=== PATIENT | female | born 1960 | race Caucasian/White ===

== ENCOUNTER → 2023-11-30 13:09 | Outpatient (REF) | payer BC, SELFPAY | LOC: WDC 13:09 | PROVIDERS: ATTENDING PHYSICIAN Family Medicine | DX: Z78.0 Asymptomatic menopausal state (principal); Z12.31 Encounter for screening mammogram for malignant neoplasm of breast | CPT/HCPCS: 77063; 77067; 77080 ==

== ENCOUNTER 2024-02-11 12:19 | Emergency (ER) | payer BC, SELFPAY ==
[2024-02-11 12:23] VITALS: BP 144/72
--- NOTE | 2024-02-11 12:25 | ED.GENMED ---
ED Provider Triage
<Larissa Rios, COMPENSATION INTERN - Last Filed: 02/11/24 13:48>
-
Patient seen by provider in Triage?: Seen in Triage
Attestation: A medical screening examination has been initiated by a qualified medical provider. Based on the assessment performed at this time, it has been determined that an emergent medical condition may exist and the patient has been informed
that further medical evaluation and possible additional diagnostic testing may be needed.
HPI: 63-year-old female presents with chest pain since last night, some shortness of breath, cough, arrives with temperature 100.2.
Flew back from [facility] 2 days ago.
GENERAL: Alert , in no apparent distress
EYE: No visual abnormalities.
ENT: No visible abnormalities.
LUNGS: No acute respiratory distress
NEUROLOGICAL: Alert and oriented
SKIN: Skin intact. No visible changes.
MUSCULOSKELETAL: Moving extremities normally
PSYCH: Normal and appropriate interaction.
This is a medical evaluation conducted in person to initiate diagnostic evaluation and provide initial therapeutics. Please see further documentation by the treating clinician.
History of Present Illness
<Larissa Rios, COMPENSATION INTERN - Last Filed: 02/11/24 13:48>
General
Chief Complaint: Chest Pain
Time Seen by Provider: 02/11/24 12:25
<Aster Robertson DO - Last Filed: 02/11/24 20:59>
History of Present Illness
History of Present Illness:
63-year-old female without significant past medical history presenting to the emergency department for fever, body aches, headache. Patient reports that she recently traveled to [facility], came home 2 days ago. Last evening started to have
headache, fever, left-sided chest pain, cough. Does note sick contact. Notes mild dyspnea. Reports diffuse body aching. She has been taking OTC medications at home. Denies any known cardiac or pulmonary history. Denies any history of blood
clots. Denies abdominal pain or GI symptoms. Denies additional acute medical complaints
Past History
<Larissa Rios, COMPENSATION INTERN - Last Filed: 02/11/24 13:48>
Past History
ED Past Medical History: Other (Fibromyalgia)
ED Past Surgical History: Gynecological
Social History
Tobacco: Non-smoker
Alcohol: Occasional
Drug: None
Personal:
Living: with family
Family History
Family History: Hypertension and CAD
Phy Exam
<Aster Robertson, DO - Last Filed: 02/11/24 20:59>
Physical Exam
Physical Exam:
General: Well-appearing, no clinical signs of dehydration, nontoxic and in no acute distress
HEENT: protecting airway
Neck: appears supple
CV: Normal heart rate, regular rhythm
Resp: No accessory muscle use, no increased work of breathing, lungs clear to auscultation bilaterally
Abd: Soft and non-distended, no tenderness to palpation
Extremities: No deformities, no swelling, no erythema
Neuro: alert, no focal neurologic deficit
: deferred
Rectal: deferred
Psych: Normal affect
Skin: Intact
Scores
<Aster Robertson, DO - Last Filed: 02/11/24 20:59>
Heart Score for Chest Pain Patients
STEMI patient?: No
History: Slightly or Non-Suspicious
ECG: Normal
Age: >45 - <65 years
Risk Factors: No Risk Factors
Troponin: </= Normal Limit
Heart Score for Chest Pain Patients: 1
Heart Score Risk: 2.5% MACE over next 6 weeks
Course
<Larissa Rios, COMPENSATION INTERN - Last Filed: 02/11/24 13:48>
Orders/Labs/Results
Orders:
Orders
02/11/24 12:20
Electrocardiogram (*1) Urgent
Reason for Study: Chest Pain
EKG- Treatment ONCE
02/11/24 12:28
CR Chest - 2 Views Urgent
Comment:
Reason For Exam: cough, fever
02/11/24 12:35
COVID-19 Antigen Urgent
Source: Nasal Swab
Complete Blood Count/With Diff Urgent
Comprehensive Metabolic Panel Urgent
Influenza A+B Rapid Molecular Urgent
MICHAEL Source: Nasal Swab
Specimen Description:
02/11/24 14:46
Acetaminophen [Tylenol] 1,000 mg PO NOW STA
Doxycycline [Vibramycin] 100 mg PO NOW STA
Abnormal Lab Results
02/11/24
12:35
MCH 32.5 H pg
(27.0-31.0)
Absolute Lymphs (auto) 0.6 L 10^3/uL
(1.2-3.4)
Lymphocytes % 12.0 L %
(20.5-51.1)
Monocytes % 12.0 H %
(1.7-9.3)
02/11/24 12:35
02/11/24 12:35
Vital Signs
Initial and Last Documented VS:
Initial Vital Signs
Temp Pulse Resp BP Pulse Ox
100.2 F 94 16 144/72 96
02/11/24 12:23 02/11/24 12:23 02/11/24 12:23 02/11/24 12:23 02/11/24 12:23
Last Documented Vital Signs
Temp Pulse Resp BP Pulse Ox
100.2 F 83 18 119/58 92
02/11/24 12:23 02/11/24 15:30 02/11/24 15:30 02/11/24 15:00 02/11/24 15:30
<Aster Robertson, DO - Last Filed: 02/11/24 20:59>
Orders/Labs/Results
Orders:
Orders
02/11/24 12:20
Electrocardiogram (*1) Urgent
Reason for Study: Chest Pain
EKG- Treatment ONCE
02/11/24 12:28
CR Chest - 2 Views Urgent
Comment:
Reason For Exam: cough, fever
02/11/24 12:35
COVID-19 Antigen Urgent
Source: Nasal Swab
Complete Blood Count/With Diff Urgent
Comprehensive Metabolic Panel Urgent
Influenza A+B Rapid Molecular Urgent
MICHAEL Source: Nasal Swab
Specimen Description:
02/11/24 14:46
Acetaminophen [Tylenol] 1,000 mg PO NOW STA
Doxycycline [Vibramycin] 100 mg PO NOW STA
Abnormal Lab Results
02/11/24
12:35
MCH 32.5 H pg
(27.0-31.0)
Absolute Lymphs (auto) 0.6 L 10^3/uL
(1.2-3.4)
Lymphocytes % 12.0 L %
(20.5-51.1)
Monocytes % 12.0 H %
(1.7-9.3)
02/11/24 12:35
02/11/24 12:35
Vital Signs
Initial and Last Documented VS:
Initial Vital Signs
Temp Pulse Resp BP Pulse Ox
100.2 F 94 16 144/72 96
02/11/24 12:23 02/11/24 12:23 02/11/24 12:23 02/11/24 12:23 02/11/24 12:23
Last Documented Vital Signs
Temp Pulse Resp BP Pulse Ox
100.2 F 83 18 119/58 92
02/11/24 12:23 02/11/24 15:30 02/11/24 15:30 02/11/24 15:00 02/11/24 15:30
<Aster Robertson, DO - Last Filed: 02/11/24 20:59>
MDM/Problems Addressed
MDM/Problems Addressed:
63-year-old female presenting to the emergency department for cough, fever, body aches, headache after traveling to [facility]. Vital signs on arrival significant for low-grade temperature.
Patient is well-appearing, nontoxic, no acute distress. Overall benign cardiac and pulmonary exam. Regarding patient's chest pain, EKG obtained ischemic interval change from prior EKG. Patient without significant cardiac risk factors or concern
for ACS. Suspected secondary to the cough and pulmonary irritation, likely viral syndrome versus bacterial pneumonia. Labs obtained prior to my assessment, normal, without leukocytosis. COVID and flu negative. Chest x-ray obtained prior to my
assessment, does show opacity consistent with pneumonia. Patient's fever, Tylenol administered. Will start patient on doxycycline. Patient ambulated, no acute desaturation. Feel candidate for discharge and outpatient supportive therapy and
antibiotic therapy. Patient agreeable to plan. Return precautions discussed with patient verbalized understanding
<Aster Robertson DO - Last Filed: 02/11/24 20:59>
*EKG
Interpreted by ED Provider?: Yes
EKG Intrepretation Date: 02/11/24
EKG Intrepretation Time: 14:56
Interpretation: normal
Comparison EKG: no changes (03/17/21)
Heart Rate: 90
Rate: normal
Rhythm: sinus
Grover: normal axis
Interval: normal interval
QRS Pattern: normal QRS
Ischemia: no ischemia
*Critical Care Note
Total Time (30-74mins, 75-104mins- exclusive of procedures): Not Applicable
ED Attending Note
<Larissa Rios COMPENSATION INTERN - Last Filed: 02/11/24 13:48>
-
Portions of this chart may have been created with voice recognition software.� Occasional wrong word or��sound alike� substitutions may have occurred due to the inherent limitations of voice recognition software.
Discharge Plan
Departure
Patient Disposition: Home (Routine Discharge)
Date of Disposition: 02/11/24
Time of Disposition: 15:22
Patient with high blood pressure during this ER visit?: No
Condition: Good
Discharge Problem:
Pneumonia
Instructions: Pneumonia in adults
Prescriptions:
New
doxycycline hyclate 100 mg capsule
100 mg PO BID 7 Days Qty: 14 0RF
No Action
sucralfate 1 GM/10 ML suspension
1 gm PO ACHS Qty: 60 0RF
pantoprazole 40 MG tablet,delayed release (DR/EC)
40 mg PO DAILY Qty: 20 0RF
Activity Restrictions/Additional Instructions:
You were seen in the emergency department for cough
You were found to have a pneumonia.
Please follow-up closely with your primary care physician.
Return to the emergency department for any worsening of your symptoms, or any development of chest pain, difficulty breathing, abdominal pain with persistent vomiting and inability to tolerate food or liquid by mouth (concern for dehydration),
weakness, headache or confusion, fever greater than 100.4, or any additional symptoms that are concerning to you.
Thank you for choosing [facility].
Interventions
Interventions:
*Risk Screen - Suicide Last Done: 02/11/24 12:25
*General Assessment Last Done: 02/11/24 14:18
*Neglect/Abuse Screening Last Done: 02/11/24 12:25
ED- Fall Risk Assessment Last Done: 02/11/24 14:25
*ED COVID-19 Vaccine History Last Done: 02/11/24 12:25
*Nursing Disposition Last Done: 02/11/24 15:35
ED- Cardiac Assessment Last Done: 02/11/24 14:24
Discharge Date and Time
Discharge Date/Time: 02/11/24 15:35
Print Language: MACEDONIAN
[2024-02-11 12:49] LABS: % Basophils 0.4 % (0-2); % Eosinophils 0.8 % (0-6); % Immature Granulocytes 0.2 % (0-0.5); % Neutrophils 74.6 % (42.2-75.2); Absolute Lymphocytes 0.6 10^3/uL (1.2-3.4); Absolute Monocytes 0.6 10^3/uL (0.1-0.6); Absolute Neutrophils 3.7 10^3/uL (1.4-6.5); Hematocrit 41.6 % (37.0-47.0); Hemoglobin 13.8 g/dL (12.0-16.0); Mean Corp Hgb Conc. 33.2 g/dL (33.0-37.0); Mean Corpuscular Hgb 32.5 pg (27.0-31.0); Mean Corpuscular Volume 97.9 fL (81.0-99.0); Mean Platelet Volume 9.6 fL (7.4-10.4); Nucleated Red Blood Cells % 0 %; Platelet Count 183 10^3/uL (130-400); Red Blood Cell Count 4.25 10^6/uL (4.20-5.40); Red Cell Dist. Width 13.7 % (11.5-14.5); White Blood Cell Count 4.9 10^3/uL (4.8-10.8)
[2024-02-11 13:01] LABS: ALT (SGPT) 15 U/L (0-35); AST (SGOT) 20 U/L (14-36); Albumin 4.1 g/dl (3.5-5.0); Alkaline Phosphatase 81 U/L (38-126); Blood Urea Nitrogen 11 mg/dl (7-17); Calcium 8.7 mg/dl (8.4-10.2); Carbon Dioxide 29 mmol/L (22-30); Chloride 103 mmol/L (98-107); Glucose 96 mg/dl (70-99); Potassium 3.9 mmol/L (3.5-5.1); Sodium 140 mmol/L (135-145); Total Bilirubin 0.6 mg/dl (0.2-1.3); Total Protein 6.7 g/dl (6.3-8.2); eGFR > 60.00
[2024-02-11 13:04] LABS: COVID-19 Antigen Negative (Negative)
[2024-02-11 14:17] VITALS: BMI 25.6
[2024-02-11 14:20] VITALS: BP 128/70
[2024-02-11] MEDS: TYLENOL 1000 MG PO (14:56)
[2024-02-11] MEDS: VIBRAMYCIN 100 MG PO (14:56)
[2024-02-11 15:00] VITALS: BP 119/58
== END 2024-02-11 15:35 | disposition home or self-care (01) ==
LOC: EMR 12:19
PROVIDERS: Registered Nurse; EMERGENCY PHYSICIAN Student in an Organized Health Care Education/Training Program; FAMILY PHYSICIAN Family Medicine
DX: J18.9 Pneumonia, unspecified organism (principal); M79.7 Fibromyalgia
CPT/HCPCS: 99285; 71046; 80053; 85025; 87502; 87811; 93005

== ENCOUNTER → 2024-12-22 08:04 | Outpatient (REF) | payer MEDICARE, BC, SELFPAY | LOC: WDC 08:04 | PROVIDERS: ATTENDING PHYSICIAN Family Medicine | DX: Z12.31 Encounter for screening mammogram for malignant neoplasm of breast (principal) | CPT/HCPCS: 77063; 77067 ==